=== PATIENT | male | born 1985 ===

== ENCOUNTER 2018-04-23 06:34 | Emergency (ER) | payer OTHER ==
[~2018-04-23] VITALS: Ht 172.7 cm; Wt 81.0 kg
[2018-04-23] MEDS ORDERED: TETanus/Pertussis (Acell)/Diphther VAC/PF (Tdap-Adult) 0.5ml syringe IM ONE (07:00)
[2018-04-23] MEDS ORDERED: LIDOcaine 1.5% w/epinephrine 1:200,000 5ml ampul IJ ONE (07:00)
[2018-04-23] MEDS ORDERED: acetaminophen 325mg tablet PO ONE (07:00)
[2018-04-23] MEDS ORDERED: LIDOcaine 1% w/epiNEPHrine 1:200,000 30ml vial IJ ONE (07:05)
--- NOTE | 2018-04-23 07:36 | NUR ---
patient back from ct.
[2018-04-23 07:50] VITALS: BP 117/79
== END 2018-04-23 08:55 ==
LOC: ER 06:37
DX: S06.0X0A Concussion without loss of consciousness, initial encounter (principal); S01.01XA Laceration without foreign body of scalp, initial encounter; F10.129 Alcohol abuse with intoxication, unspecified; F17.200 Nicotine dependence, unspecified, uncomplicated; W50.0XXA Accidental hit or strike by another person, initial encounter; Y93.89 Activity, other specified; Y92.89 Other specified places as the place of occurrence of the external cause; Y99.8 Other external cause status
CPT/HCPCS: 12002; 70450; 90471; 90715; 99284; J3490